=== PATIENT | female | born 1995 | race Caucasian/White ===

== ENCOUNTER 2016-07-25 11:58 | Emergency (ER) | payer BC ==
[2016-07-25 12:47] VITALS: BP 120/84
[2016-07-25] MEDS ORDERED: Albuterol 2.5 MG/3 ML NEB.SOL* (0.083%) INH ONE (12:58)
--- NOTE | 2016-07-25 13:04 | UC ---
Respiratory Complaint HPI - HPI Summary HPI Summary: ST, nasal congestion, cough, wheezing, and trouble breathing starting 3-4 days ago. "I'm in the middle of being tested for asthma for months." Ran out of albuterol yesterday, is waking at night with lots of wheezing and tightness. Denies fever. - History of Current Complaint Chief Complaint: UCRespiratory Stated Complaint: DIARRHEA CONGESTION Time Seen by Provider: 07/25/16 12:43 Hx Obtained From: Patient Hx Last Menstrual Period: 07/22/16 ?: No Onset/Duration: Gradual Onset, Lasting Days Timing: Constant Severity Initially: Mild Character: Cough: Nonproductive Aggravating Factors: Deep Breaths, Recumbent Position Alleviating Factors: Upright Position Associated Signs And Symptoms: Positive: Wheezing, URI, Nasal Congestion - Allergies/Home Medications Allergies/Adverse Reactions: Allergies Allergy/AdvReac Type Severity Reaction Status Date / Time No Known Allergies Allergy Verified 07/25/16 12:47 PMH/Surg Hx/FS Hx/Imm Hx Endocrine History Of: Denies: Diabetes, Thyroid Disease Cardiovascular History Of: Denies: Cardiac Disorders, Hypertension Respiratory History Of: Denies: COPD, Asthma GI/ History Of: Denies: Ulcer - Surgical History Surgical History: None - Family History Known Family History: Positive: Hypertension - mother, Respiratory Disease - mother with asthma Negative: Cardiac Disease, Diabetes - Social History Lives: Alone Alcohol Use: Weekly Substance Use Type: Marijuana Smoking Status (MU): Light Every Day Tobacco Smoker Type: Cigarettes Amount Used/How Often: 2 cigs a day Have You Smoked in the Last Year: Yes Review of Systems Constitutional: Negative Skin: Negative Eyes: Negative ENT: Sore Throat, Nasal Discharge Respiratory: Cough Cardiovascular: Negative Gastrointestinal: Negative Genitourinary: Negative Motor: Negative Neurovascular: Negative Musculoskeletal: Negative Neurological: Negative Psychological: Negative All Other Systems Reviewed And Are Negative: Yes Physical Exam Triage Information Reviewed: Yes Appearance: Well-Appearing, No Pain Distress, Well-Nourished Vital Signs: Initial Vital Signs Temp 98.3 F 07/25/16 12:42 Pulse 78 07/25/16 12:42 Resp 16 07/25/16 12:42 BP 120/84 07/25/16 12:42 Pulse Ox 94 07/25/16 12:42 Vital Signs Reviewed: Yes Eye Exam: Normal Eyes: Positive: Conjunctiva Clear ENT: Positive: Hearing grossly normal, Pharynx normal, Nasal congestion, TMs normal. Negative: Tonsillar swelling Dental Exam: Normal Neck exam: Normal Neck: Positive: Supple, Nontender Respiratory: Positive: No respiratory distress, Wheezing, Expiration Cardiovascular Exam: Normal Cardiovascular: Positive: RRR, No Murmur Musculoskeletal Exam: Normal Neurological Exam: Normal Psychological Exam: Normal Skin Exam: Normal UC Diagnostic Evaluation - Laboratory O2 Sat by Pulse Oximetry: 94 Re-Evaluation - Re-Evaluation First Eval Re-Evaluation Time: 13:14 Change: Improved - wheezing decreased, pt reports feeling better Respiratory Course/Dx - Differential Dx/Diagnosis Provider Diagnoses: URI. bronchospasm Discharge - Discharge Plan Condition: Stable Disposition: HOME Patient Education Materials: Upper Respiratory Infection (ED), Bronchospasm (ED ) Referrals: Amparo Coffey [employer] [Primary Care Provider] - If Needed Additional Instructions: We used to think antibiotics were necessary to treat bronchitis, but studies have shown that respiratory viruses cause the disease in the vast majority of cases. Like head colds, most cases of bronchitis get better without antibiotics. We may prescribe antibiotics if we believe bacteria are damaging your airways, or if there's high risk the bronchitis will worsen into pneumonia (such as for individuals with emphysema or other lung disease). Increase your fluid intake. A cool mist humidifier may make your lungs more comfortable. An expectorant (cough medicine that loosens phlegm) can help. If you smoke, STOP!!! Recovery from bronchitis can be somewhat slow, but you should not have any significant worsening or new fevers. As long as you can breathe easily and you continue to have steady improvement, it is not important how many days it takes you to get better. Call or return if you develop increasing fever, shortness of breath, chest pain , bloody sputum, or otherwise worsen. If you have not improved at all after several days, contact your primary care physician or return here.
== END 2016-07-25 13:24 | disposition home or self-care (01) ==
LOC: UCEAST 11:58
DX: J06.9 Acute upper respiratory infection, unspecified (principal); J98.01 Acute bronchospasm; F17.210 Nicotine dependence, cigarettes, uncomplicated
CPT/HCPCS: 99212; G0463

== ENCOUNTER 2016-08-30 19:28 | Emergency (ER) | payer BC ==
[2016-08-30 19:45] VITALS: BP 122/78
[2016-08-30] MEDS ORDERED: Albuterol 2.5 MG/3 ML NEB.SOL* (0.083%) INH ONE (19:54)
[2016-08-30] MEDS ORDERED: Phenylephrine 0.5% NASAL* BTL BOTH NARES ONE (19:55)
[2016-08-30] MEDS ORDERED: Acetaminophen TAB* 325 MG PO ONE (19:58)
[2016-08-30] MEDS ORDERED: Oseltamivir CAP* 75 MG PO ONE (20:26)
--- NOTE | 2016-08-30 21:13 | UC ---
Yamila Vega Michael, scribed for Mayra Stallings MD on 08/30/16 at 2001 . FLU HPI - HPI Summary HPI Summary: 21 y/o female comes to [facility] presenting with diarrhea for the last day. The pt reports that she has 2 episodes per hour. The pt also c/o nonproductive cough, sinus discomfort, nasal congestion for 2 days, and wheezing. She notes CP with the cough, and it is aggravated with deep breaths. The CP due to the cough is described as a 7 out of 10 in a pain assessment scale. She denies a sore throat, abd pain, vomiting, and blood in the stool. - History of Current Complaint Chief Complaint: UCRespiratory Stated Complaint: COLD,DIARRHEA Time Seen by Provider: 08/30/16 19:45 Hx Obtained From: Patient, Medical Records Hx Last Menstrual Period: current Onset/Duration: Sudden Onset, Lasting Days, Still Present Severity Currently: Moderate Severity Initially: Moderate Pain Intensity: 7 Pain Scale Used: 0-10 Numeric Associated Signs & Symptoms: Positive: Negative - blood in stool and abd pain, Cough - CP with cough. wheezing., Nasal Congestion - sinus discomfort, Diarrhea. Negative: Sore Throat, Vomiting - Allergy/Home Medications Allergies/Adverse Reactions: Allergies Allergy/AdvReac Type Severity Reaction Status Date / Time No Known Allergies Allergy Verified 08/30/16 19:38 Home Medications: Home Medications [id number] [Theraflu Cold & Cough 10-20-20 mg] 1 silverio PO DAILY PRN 08/30/16 [History Confirmed 08/30/16] PMH/Surg Hx/FS Hx/Imm Hx Endocrine History Of: Denies: Diabetes, Thyroid Disease Cardiovascular History Of: Denies: Cardiac Disorders, Hypertension Respiratory History Of: Reports: Asthma Denies: COPD GI/ History Of: Denies: Ulcer - Surgical History Surgical History: None - Family History Known Family History: Positive: Hypertension - mother, Respiratory Disease - mother with asthma Negative: Cardiac Disease, Diabetes - Social History Occupation: Employed Full-time Lives: Alone Alcohol Use: Weekly Substance Use Type: Marijuana Substance Use Comment - Amount & Last Used: daily Smoking Status (MU): Light Every Day Tobacco Smoker Type: Cigarettes Amount Used/How Often: 2 cigs a day Have You Smoked in the Last Year: Yes - Immunization History Most Recent Influenza Vaccination: none Review of Systems Constitutional: Chills, Fatigue ENT: Nasal Discharge, Other - sinus discomfort Respiratory: Cough, Other - wheezes Cardiovascular: Chest Pain - with cough Musculoskeletal: Myalgia Neurological: Headache Psychological: Negative All Other Systems Reviewed And Are Negative: Yes Physical Exam Triage Information Reviewed: Yes Appearance: No Pain Distress, Well-Nourished, Ill-Appearing Vital Signs: Initial Vital Signs Temp 99.3 F 08/30/16 19:40 Pulse 110 08/30/16 19:40 Resp 16 08/30/16 19:40 BP 122/78 08/30/16 19:40 Pulse Ox 97 08/30/16 19:40 tachycardia noted Vital Signs Reviewed: Yes Eyes: Positive: Conjunctiva Clear ENT: Positive: Hearing grossly normal, Pharynx normal, Nasal congestion - red nares-has to blow her nose frequently, TMs normal. Negative: Tonsillar swelling , Tonsillar exudate, Muffled/hoarse voice Neck: Positive: Supple, Nontender, No Lymphadenopathy Respiratory: Positive: Lungs clear, No respiratory distress, Decreased breath sounds Cardiovascular: Positive: No Murmur, Pulses Normal, Brisk Capillary Refill, Tachycardia Abdomen Description: Positive: Nontender, No Organomegaly, Soft. Negative: Distended, Guarding, McBurney's Point Tenderness, Peritoneal Signs Bowel Sounds: Positive: Present Musculoskeletal: Positive: Strength Intact, ROM Intact Neurological Exam: Normal Psychological Exam: Normal Skin Exam: Normal Re-Evaluation - Re-Evaluation 1st Re-Evaluation Time: 20:27 Change: Unchanged Comment: discussed influenza results and plan of care. Flu Course/Dx - Course Course Of Treatment: influenza B positive. albuterol neb given with improvement. shelley synephrine nasal spray. Pt only provided a small amount of stool. Will check for Cdiff as this is the only test that can be run on such a small amount. Pt will return if diarrhea continues. - Differential Dx/Diagnosis Differential Diagnosis/HQI/PQRI: Bronchitis, Influenza, Pneumonia, Upper Respiratory Infection Provider Diagnoses: Influenza B. diarrhea Discharge - Discharge Plan Condition: Stable Disposition: HOME Prescriptions: Albuterol 2.5MG/3ML (0.083%)* [Ventolin 2.5 MG/3 ML NEB.NEGRO*] 2.5 mg INH Q4H PRN #50 neb.negro PRN Reason: Cough Azelastine 0.15% NASAL(NF) [Astepro 0.15% NASAL (NF)] 2 spray NASAL BID #1 spray Oseltamivir CAP* [Tamiflu CAP*] 75 mg PO BID #10 cap Patient Education Materials: Influenza (ED) Forms: *Work Release Referrals: Amparo Coffey NP [Primary Care Provider] - Additional Instructions: Please follow up with Amparo Coffey (CLAMPER) within the next 2 days. The documentation as recorded by the Yamila byers Michael accurately reflects the service I personally performed and the decisions made by Chandrakant shafer Barbara J, MD.
== END 2016-08-30 20:50 | disposition home or self-care (01) ==
LOC: UCEAST 19:28
DX: J11.1 Influenza due to unidentified influenza virus with other respiratory manifestations (principal); F12.90 Cannabis use, unspecified, uncomplicated; F17.210 Nicotine dependence, cigarettes, uncomplicated; R19.7 Diarrhea, unspecified
CPT/HCPCS: 87493; 87502; 99213; A9270-GY; G0463

== ENCOUNTER 2017-10-25 12:03 | Emergency (ER) | payer BC ==
[2017-10-25 12:11] VITALS: BP 115/78
--- NOTE | 2017-10-25 13:26 | UC ---
Zev Vega Gabriel, scribed for Tenet St. LouisLeo MD on 10/25/17 at 1247 . Respiratory Complaint HPI - HPI Summary HPI Summary: This patient is a 22 year old F presenting to [facility] [place] with a chief complaint of a cough for that past 2 days. The patient rates the pain 0/10 in severity. Patient reports sinus congestion, chest congestion, low grade subjective fever, diarrhea, and head congestion. Patient denies CP and sore throat. note: vital signs stable, afebrile, pulse ox 98, light smoker, visit history : cough in 2016 and 2017. Uses albuterol and hx of asthma. Nurse note: Congested head and lungs x 2 days - History of Current Complaint Chief Complaint: UCRespiratory Stated Complaint: CONGESTED Time Seen by Provider: 10/25/17 12:40 Hx Obtained From: Patient Hx Last Menstrual Period: 09/23/17 Onset/Duration: Lasting Days - 2, Still Present Timing: Constant Severity Initially: Mild Severity Currently: Mild Pain Intensity: 0 Pain Scale Used: 0-10 Numeric Character: Cough: Nonproductive Associated Signs And Symptoms: Positive: Fever - low grade, Nasal Congestion - Allergies/Home Medications Allergies/Adverse Reactions: Allergies Allergy/AdvReac Type Severity Reaction Status Date / Time mold Allergy sinus Uncoded 10/25/17 12:12 Home Medications: Home Medications Jublia 10/25/17 [History] PMH/Surg Hx/FS Hx/Imm Hx Respiratory History: Asthma - Surgical History Surgical History: None - Family History Known Family History: Positive: Cardiac Disease, Hypertension - mother, Respiratory Disease - mother with asthma, Other - cancer Negative: Diabetes - Social History 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 Alcohol Use: Weekly Substance Use Type: Marijuana Substance Use Comment - Amount & Last Used: daily Smoking Status (MU): Light Every Day Tobacco Smoker Type: Cigarettes Amount Used/How Often: 2 cigs a day Have You Smoked in the Last Year: Yes - Immunization History Most Recent Influenza Vaccination: none Review of Systems Constitutional: Fever - low grade subjective ENT: Sinus Congestion Respiratory: Cough Cardiovascular: Other - chest congestion and head congestion Gastrointestinal: Diarrhea All Other Systems Reviewed And Are Negative: Yes - Comments Additional Review of Systems Comments: Positive: cough, sinus congestion, chest congestion, low grade subjective fever , diarrhea, and head congestion. Negative: CP and sore throat. Physical Exam - Summary Physical Exam Summary: Appearance: The patient is well-appearing, is in no pain distress, and is well- nourished. Eyes: Conjunctiva are clear. ENT: The hearing is grossly normal, the pharynx is normal, and the TMs are normal. There is no muffled or hoarse voice. Neck: The neck is supple and there is no lymphadenopathy. Respiratory: The chest is nontender. The lungs are clear and there is no respiratory distress. EXTENDED EXPIRATORY PHASE BILATERALLY Cardiovascular: Heart is regular rate and rhythm. There is no murmur. Abdomen: The abdomen is soft and nontender. There is no organomegaly. Bowel sounds: present Musculoskeletal: Strength is intact. The patient moves all extremities. Neurological: The patient is alert. Psychological: The patient displays age appropriate behavior Skin: Negative for rashes. Triage Information Reviewed: Yes Vital Signs: Initial Vital Signs Temp 98.6 F 10/25/17 12:09 Pulse 80 10/25/17 12:09 Resp 18 10/25/17 12:09 BP 115/78 10/25/17 12:09 Pulse Ox 98 10/25/17 12:09 Vital Signs Reviewed: Yes Diagnostic Evaluation - Laboratory O2 Sat by Pulse Oximetry: 98 Respiratory Course/Dx - Course Course Of Treatment: 22 y/o female, light smoker with 2 day history of cough. Previous history suggests bronchospasm. PE consistent with extended expiratory phase. Medications have been included in the original chart and reviewed - Differential Dx/Diagnosis Differential Diagnosis/HQI/PQRI: Other - PNA vs bronchitis Provider Diagnoses: bronchitis with bronchospasm Discharge - Sign-Out/Discharge Documenting (check all that apply): Discharge/Admit/Transfer - Discharge Plan Condition: Stable Disposition: HOME Prescriptions: Albuterol HFA INHALER* [Ventolin HFA Inhaler*] 1 - 2 puff INH Q4H PRN #1 mdi PRN Reason: Shortness Of Breath Inhaler, Assist Devices [Aerochamber Mv] 1 mis XX Q6HR #1 mis Patient Education Materials: Acute Bronchitis (ED), Bronchospasm (ED) Referrals: Amparo Coffey NP [Primary Care Provider] - Additional Instructions: WE DISCUSSED: You don't have pneumonia. You do have bronchitis with bronchospasm. This means that her lungs are hyperreactive to irritants and when they are irritated, you cough. Use the inhaler and spacer, 2 puffs up to 4 times a day spaced out a few hours apart. Over the next 10 days here condition should be getting better. Return here or go to the emergency department if you have increased temperature , chest pain, shortness of breath or difficulty breathing or swallowing. Warm liquids such as harika and honey also help calm down the chest. Also steam and standing in the shower and letting it down land on the front of your chest can help. - Billing Disposition and Condition Condition: STABLE Disposition: Home The documentation as recorded by the Zev byers Gabriel accurately reflects the service I personally performed and the decisions made by me, Leo Coles MD.
== END 2017-10-25 13:05 | disposition home or self-care (01) ==
LOC: UCEAST 12:03
DX: J40 Bronchitis, not specified as acute or chronic (principal); J98.01 Acute bronchospasm; F17.210 Nicotine dependence, cigarettes, uncomplicated
CPT/HCPCS: 99212; G0463

== ENCOUNTER 2018-05-10 09:22 | Emergency (ER) | payer BC ==
--- NOTE | 2018-05-10 10:34 | UC ---
Respiratory Complaint HPI - HPI Summary HPI Summary: 23 y/o female presets to the urgent care c/o productive cough w/ green phlegm since Wednesday05/07/2018. Pt states symptoms started w/ common cold and then she developed wheezing. Now she feels SOB and cough is worse at night unable to sleep well. Pt has low grade fever and chills the first day. 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 Pt states body aches and mild GUERIN is 2/10. Pt denies dizziness, Abdominal pain, neck pain rash, N/V/d. LMP:04/12/2018 on OCP. PT declines test. - History of Current Complaint Chief Complaint: UCRespiratory Stated Complaint: RESP ISSUE Time Seen by Provider: 05/10/18 10:09 Hx Obtained From: Patient Hx Last Menstrual Period: 09/23/17 Onset/Duration: Gradual Onset, Lasting Days, Still Present, Worse Since - yesterday Timing: Intermittent Episodes Severity Initially: Mild Severity Currently: Moderate Pain Intensity: 2 - body aches Pain Scale Used: 0-10 Numeric Character: Cough: Productive, Sputum Description: - green Aggravating Factors: Recumbent Position Alleviating Factors: Bronchodilator, OTC Meds Associated Signs And Symptoms: Positive: Chills, Wheezing, URI, Nasal Congestion , Sinus Discomfort - Risk Factors Pulmonary Embolism Risk Factors: Negative Cardiac Risk Factors: Negative Pseudomonas Risk Factors: Negative Tuberculosis Risk Factors: Negative - Allergies/Home Medications Allergies/Adverse Reactions: Allergies Allergy/AdvReac Type Severity Reaction Status Date / Time mold Allergy sinus Uncoded 05/10/18 09:58 Home Medications: Home Medications Desogestrel-Ethinyl Estradiol [Novdano 28 Day Tablet] 1 tab PO 05/10/18 [History ] PMH/Surg Hx/FS Hx/Imm Hx Previously Healthy: Yes Respiratory History: Asthma - Surgical History Surgical History: None - Family History Known Family History: Positive: Cardiac Disease, Hypertension - mother, Respiratory Disease - mother with asthma, Other - cancer Negative: Diabetes - Social History Occupation: Employed Full-time Lives: With Family Alcohol Use: Weekly Substance Use Type: Marijuana Substance Use Comment - Amount & Last Used: daily Smoking Status (MU): Light Every Day Tobacco Smoker Type: Cigarettes Amount Used/How Often: 2 cigs a day Have You Smoked in the Last Year: Yes - Immunization History Most Recent Influenza Vaccination: none Review of Systems All Other Systems Reviewed And Are Negative: Yes Constitutional: Positive: Chills, Other - body aches Skin: Positive: Negative Eyes: Positive: Negative ENT: Positive: Sore Throat - mild, Nasal Discharge - yellowish, Sinus Congestion , Sinus Pain/Tenderness Respiratory: Positive: Shortness Of Breath - at times, Cough - green phlegm Cardiovascular: Positive: Negative Gastrointestinal: Positive: Negative Genitourinary: Positive: Negative Motor: Positive: Negative Neurovascular: Positive: Negative Musculoskeletal: Positive: Negative Neurological: Positive: Negative Psychological: Positive: Negative Is Patient Immunocompromised?: No Physical Exam - Summary Physical Exam Summary: Vital Signs Reviewed: Yes General: well developed, well nourished female sitting in the examining table w/ o any apparent distress Eyes: Positive: Conjunctiva Clear - PERRLA, EOMI, fundi grossly normal ENT: Positive: Normal ENT inspection, Hearing grossly normal, Pharynx normal, Nasal congestion - edematous and erythematous nasal mucosa, Nasal drainage - yellowish drainage, TMs normal. Negative: Tonsillar swelling, Tonsillar exudate Neck: Positive: Supple, Nontender, No Lymphadenopathy Respiratory: no orthopnea or dyspnea. Able to speak in full sentences, no retractions or accessory muscle use, no tripod position, stridor, or head bobbing. Positive breath sounds bilaterally. diffuse scattered wheezing and rhonchi on b/L lungs, no crackles or rales. Cardiovascular: Positive: RRR, No Murmur, Pulses Normal, Brisk Capillary Refill Abdomen Description: Positive: Nontender, No Organomegaly, Soft. Negative: CVA Tenderness (R), CVA Tenderness (L) Bowel Sounds: Positive: Present Musculoskeletal Exam: Normal Musculoskeletal: Positive: Strength Intact, ROM Intact, No Edema Neurological Exam: Normal Psychological Exam: Normal Skin Exam: Normal Triage Information Reviewed: Yes Vital Signs: Initial Vital Signs Temp 98.0 F 05/10/18 09:55 Pulse 80 05/10/18 09:55 Resp 18 05/10/18 09:55 BP 117/78 05/10/18 09:55 Pulse Ox 97 05/10/18 09:55 Diagnostic Evaluation - Laboratory O2 Sat by Pulse Oximetry: 97 Respiratory Course/Dx - Course Course Of Treatment: 23 y/o female presets to the urgent care c/o productive cough w/ green phlegm since Wednesday05/07/2018. Pt states symptoms started w/ common cold and then she developed wheezing. Now she feels SOB and cough is worse at night unable to sleep well. Pt has low grade fever and chills the first day. 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 Pt states body aches and mild GUERIN is 2/10. Pt denies dizziness, Abdominal pain, neck pain rash, N/V/d. LMP:04/12/2018 on OCP. PT declines test. Hx obtained. Pt w/ scattered wheezes on bilaterally lungs, and mild rhonchi, good air entry B/L on examination. O2Sat: 97. Chest X-ray ordered to r/o pneumonia, Impression:no acute cardiopulmonary disease. Pt w/ asthma exacerbation due to bronchitis. Pt given Prednisone PO and Duoneb Treatment to alleviate symptoms. Pt tolerated well treatment and lungs improved,and wheezing resolved. Patient prescribed Z-marco PO, Prednisone taper dose, Albuterol neb and inhaler to alleviate symptoms as directed below. The patient was recommended to increase fluid intake. Take medications as recommended. Pt advised to returned to the clinic or f/u w/ her PCP if symptoms do not improve. All D/C instructions explained. Patient understood and agree w / plan of care. Pt left clinic hemodynamically stable , A&OX3 - Differential Dx/Diagnosis Differential Diagnosis/HQI/PQRI: Asthma, Bronchitis, Influenza, Lower Resp Infection, Sinusitis, Other - pneumonia Provider Diagnosis: Asthma exacerbation Discharge - Sign-Out/Discharge Documenting (check all that apply): Patient Departure - d/c home All imaging exams completed and their final reports reviewed: Yes - Discharge Plan Condition: Stable Disposition: HOME Prescriptions: Albuterol 2.5MG/3ML (0.083%)* [Ventolin 2.5 MG/3 ML NEB.NEGRO*] 2.5 mg INH Q6H #1 box Albuterol HFA INHALER* [Ventolin HFA Inhaler*] 1 - 2 puff INH Q4H PRN #1 mdi PRN Reason: Shortness Of Breath Azithromyxin MARCO (NF) [Z-Marco (Zithromax) 250 mg tabs #6] 2 tab PO .TODAY, THEN 1 DAILY #6 tab predniSONE TAB* [Deltasone 20 MG TAB*] 20 mg PO DAILY #8 tab Patient Education Materials: Asthma (ED), Acute Bronchitis (ED) Forms: *Work Release Referrals: Amparo Coffey NP [Primary Care Provider] - 2 Days Additional Instructions: 1- Take Prednisone PO taper dose as directed starting tomorrow. First loading dose given today. 2- 3-Use the Duoneb nebulizer treatment to alleviate SOB, and wheezing as directed . Increase fluid intake, rest and eat well. 4- If symptoms do not improve or worsen or your develop SOB with fever and severe wheezing please go immediately to the ER further evaluation and treatment. 5- F/u with your PCP in 2-3 days for further management on your Asthma - Billing Disposition and Condition Condition: STABLE Disposition: Home
[2018-05-10] MEDS ORDERED: predniSONE TAB* 20 MG PO ONE (10:43)
[2018-05-10] MEDS ORDERED: Albuterol/Ipratropium NEB.SOL* Albuterol 2.5 MG/Ipratropium 0.5 MG 3 ML INH ONE (10:43)
[2018-05-10 11:49] VITALS: BP 125/81
== END 2018-05-10 11:50 | disposition home or self-care (01) ==
LOC: UCEAST 09:22
DX: J45.901 Unspecified asthma with (acute) exacerbation (principal); F17.210 Nicotine dependence, cigarettes, uncomplicated; Z91.048 Other nonmedicinal substance allergy status
CPT/HCPCS: 71046; 99212; A9270-GY; G0463; J7512

== ENCOUNTER 2018-12-19 20:05 | Emergency (ER) | payer BC ==
--- NOTE | 2018-12-19 20:17 | UC ---
Respiratory Complaint HPI - HPI Summary HPI Summary: 23 yo female presents with cough. She tells me that she began to get sick 2 weeks ago with a dry cough that has continued into today. She quit smoking about 2 weeks ago because she would constantly get "sick" with URI symptoms. Has not smoked in 2 weeks. She does feel SOB at times. She has an albuterol nebulizer at home that she has been using with good short term relief, but her symptoms return. She has been taking mucinex, delsym, and dayquill/nyquill with no change in her symptoms. Denies fever, chills, sore throat, chest pain, n/v. - History of Current Complaint Stated Complaint: COUGH Time Seen by Provider: 12/19/18 20:16 Hx Obtained From: Patient Hx Last Menstrual Period: 04/07/19 Onset/Duration: Gradual Onset Severity Initially: Mild Severity Currently: Moderate Pain Intensity: 5 Pain Scale Used: 0-10 Numeric Character: Cough: Nonproductive - Allergies/Home Medications Allergies/Adverse Reactions: Allergies Allergy/AdvReac Type Severity Reaction Status Date / Time mold Allergy sinus Uncoded 12/19/18 20:21 Home Medications: Home Medications Albuterol 2.5MG/3ML (0.083%)* [Ventolin 2.5 MG/3 ML NEB.NEGRO*] 1 unit INH BID PRN 12/19/18 [History Confirmed 12/19/18] Albuterol HFA INHALER* [Ventolin HFA Inhaler*] 2 puff INH Q4HR PRN 12/19/18 [ History Confirmed 12/19/18] Cetirizine HCl [Allergy Relief] 1 tab PO ONCE PRN 12/19/18 [History Confirmed ] Guaifen/Dextromethorphan/PE [Robitussin Cough-Cold Cf Liq] 1 dose PO ONCE PRN [History Confirmed 12/19/18] Levocetirizine Dihydrochloride [Xyzal] 1 tab PO QPM 12/19/18 [History Confirmed 12/19/18] PMH/Surg Hx/FS Hx/Imm Hx Respiratory History: Asthma - Surgical History Surgical History: None - Family History Known Family History: Positive: Cardiac Disease, Hypertension - mother, Respiratory Disease - mother with asthma, Other - cancer Negative: Diabetes - Social History Lives: With Family Alcohol Use: Weekly Substance Use Type: Marijuana Substance Use Comment - Amount & Last Used: daily Smoking Status (MU): Light Every Day Tobacco Smoker Type: Cigarettes Amount Used/How Often: 2 cigs a day Have You Smoked in the Last Year: Yes - Immunization History Most Recent Influenza Vaccination: none Review of Systems All Other Systems Reviewed And Are Negative: Yes Constitutional: Positive: Negative Skin: Positive: Negative Eyes: Positive: Negative ENT: Positive: Negative Respiratory: Positive: Cough Cardiovascular: Positive: Negative Gastrointestinal: Positive: Negative Neurovascular: Positive: Negative Neurological: Positive: Negative Psychological: Positive: Negative Physical Exam - Summary Physical Exam Summary: GENERAL: NAD. WDWN. No pain distress. SKIN: No rashes, sores, lesions, or open wounds. HEENT: Head: AT/NC Eyes: Conjunctiva clear without inflammation or discharge. Ears: Hearing grossly normal. TMs intact, no bulging, erythema, or edema. Nose: Nasal mucosa pink and moist. NTTP maxillary and frontal sinus. Throat: Posterior oropharynx without exudates, erythema, or tonsillar enlargement. Uvula midline. NECK: Supple. Nontender. No lymphadenopathy. CHEST: Mild wheezing and crackles bibasilar. No accessory muscle use. Breathing comfortably and in no distress. CV: RRR. Without m/r/g. Pulses intact. Cap refill <2seconds NEURO: Alert. PSYCH: Age appropriate behavior. Triage Information Reviewed: Yes Vital Signs: Vital Signs: Temp Pulse Resp BP Pulse Ox 98.3 F 91 18 121/92 96 12/19/18 20:15 12/19/18 20:15 12/19/18 20:15 12/19/18 20:15 12/19/18 20:15 Vital Signs Reviewed: Yes Respiratory Course/Dx - Course Course Of Treatment: CXR: wet read negative for PNA. Duoneb: good improvement s/p with less wheezing and easier to take a deep breath Suspect bronchitis. Rx for zpak, albuterol inhaler, and cough syrup at bedtime. Will also refill her albuterol nebulizer solutions. - Differential Dx/Diagnosis Provider Diagnosis: Bronchitis Discharge - Sign-Out/Discharge Documenting (check all that apply): Patient Departure All imaging exams completed and their final reports reviewed: No - Discharge Plan Condition: Stable Disposition: HOME Prescriptions: Albuterol 2.5MG/3ML (0.083%)* [Ventolin 2.5 MG/3 ML NEB.NEGRO*] 2.5 mg INH Q6H PRN #30 neb.negro PRN Reason: Wheezing Azithromycin TAB* [Zithromax TAB (Z-MELLISSA) 250 mg #6 tabs] 2 tab PO .TODAY, THEN 1 DAILY #1 mellissa Codeine Phosphate/Guaifenesin [Guaifen-Codeine 100-10 mg/5 ml] 5 ml PO BEDTIME PRN #35 ml MDD 5mL PRN Reason: Cough Patient Education Materials: Acute Bronchitis (ED) Referrals: Amparo Coffey SPA THERAPIST [Primary Care Provider] - Additional Instructions: If you develop a fever, shortness of breath, chest pain, new or worsening symptoms - please call your PCP or go to the ED immediately. - Billing Disposition and Condition Condition: STABLE Disposition: Home - Attestation Statements Provider Attestation: I was available for consult. This patient was seen by the [facility]. The patient was not presented to, seen by, or examined by me. -Emmanuel
[2018-12-19 20:21] VITALS: BP 121/92
[2018-12-19] MEDS ORDERED: Albuterol/Ipratropium NEB.SOL* Albuterol 2.5 MG/Ipratropium 0.5 MG 3 ML INH ONE (20:31)
[2018-12-19] MEDS ORDERED: Azithromycin TAB* 250 MG PO ONE (20:40)
[2018-12-19] MEDS ORDERED: Albuterol HFA INHALER* 8 gm MDI INH ONE (20:40)
--- NOTE | 2018-12-20 08:19 | UC ---
- Progress Note Progress Note: Patient Name: JANINE CHAUDHARY Medical Record#: [id number] Ordering Physician: Pastor HERNANDEZ Acct.#: [id number] : 1995 Age: 23 Sex: F Location: [facility] Exam Date: 12/19/182026 ADM Status: DEP ER Order Information: CHEST PA & LAT 2 VWS Accession Number: [id number] CPT: 07988 INDICATION: Cough. COMPARISON: Comparison is made with prior study from May 10, 2018. TECHNIQUE: Dual-energy PA and lateral views of the chest were obtained. FINDINGS: The heart is within normal limits in size. Mediastinal and hilar contours appear within normal limits. There is a small infiltrates at the right lung base which appears to be in the right middle lobe suggestive of pneumonia. The lungs are otherwise clear. No pleural effusion is seen. The results of this exam were called to the urgent care nurse [place]. IMPRESSION: SMALL RIGHT MIDDLE LOBE INFILTRATE SUGGESTIVE OF PNEUMONIA. R3 Preliminary Imaging Read R3 <Electronically signed by Osman Weber MD in OV> 12/20/18719 Dictated By: Osman Weber MD Dictated Date/Time: 12/20/18719 Transcribed Date/Time: 12/20/18716 Copy to: CC:Divine Trevino MD; Amparo Coffey STONEMASON APPRENTICE; Pastor HERNANDEZ Imaging - [facility] - [place] [facility] [address] [address] ph ([phone]) ph ([phone]) ph ([phone]) This report is only to be considered final once signed by the Provider(s) as displayed in the "<Electronically Signed by >" field (s). Absence of a signature indicates the report is in a draft status and still needs to be finalized. In the event this document was created by someone other than the signing Provider, the individual initiating the document will be listed in the "Entered by:" or "Dictated by:" warner. 1 of 1 Patient diagnosed with bronchitis and placed on a Z-mellissa. Antibiotics appropriate but RN will call to update patient to diagnosis change Course/Dx - Diagnoses Provider Diagnoses: Bronchitis Discharge - Sign-Out/Discharge Documenting (check all that apply): Post-Discharge Follow Up All imaging exams completed and their final reports reviewed: Yes - Discharge Plan Condition: Stable Disposition: HOME Prescriptions: Albuterol 2.5MG/3ML (0.083%)* [Ventolin 2.5 MG/3 ML NEB.RONALDO*] 2.5 mg INH Q6H PRN #30 neb.ronaldo PRN Reason: Wheezing Azithromycin TAB* [Zithromax TAB (Z-MELLISSA) 250 mg #6 tabs] 2 tab PO .TODAY, THEN 1 DAILY #1 mellissa Codeine Phosphate/Guaifenesin [Guaifen-Codeine 100-10 mg/5 ml] 5 ml PO BEDTIME PRN #35 ml MDD 5mL PRN Reason: Cough Patient Education Materials: Acute Bronchitis (ED) Referrals: Amparo Coffey NP [Primary Care Provider] - Additional Instructions: If you develop a fever, shortness of breath, chest pain, new or worsening symptoms - please call your PCP or go to the ED immediately. - Billing Disposition and Condition Condition: STABLE Disposition: Home
== END 2018-12-19 21:10 | disposition home or self-care (01) ==
LOC: UCEAST 20:05
DX: J40 Bronchitis, not specified as acute or chronic (principal); F17.210 Nicotine dependence, cigarettes, uncomplicated
CPT/HCPCS: 71046; 99213; A9270-GY; G0463

== ENCOUNTER 2024-03-26 00:52 | Inpatient (IN) ==
[2024-03-26] MEDS: Lactated Ringers 1000 ml BAG 1,000 ML IV ONE (01:10)
[2024-03-26] MEDS ORDERED: Ondansetron 4 mg VIAL 2 MG/ML 2 ml VIAL IV PRN ×2 (01:17→14:12)
[2024-03-26] MEDS ORDERED: Lactated Ringers 1000 ml BAG 1,000 ML IV ONE (01:27)
[2024-03-26] MEDS ORDERED: Lidocaine 1% VIAL 10 MG/ML 30 ML VIAL INJ PRN (01:27)
[2024-03-26 01:31] LABS: ABS Basophils 0.1 10^3/uL (0.0-0.1); ABS Eosinophils 0.2 10^3/uL (0.0-0.5); ABS Lymphocytes 2.5 10^3/uL (1.0-4.8); ABS Monocytes 0.8 10^3/uL (0.0-0.9); ABS Neutrophils 6.9 10^3/uL (1.5-7.6); ABS Nucleated RBC 0.01 10^3/ul; Hematocrit 37.1 % (35-45); Hemoglobin 12.9 g/dL (11.5-14.3); Lymphocyte % 23.9 %; Mean Corpuscular Hgb Conc 34.7 g/dL (31-36); Mean Corpuscular Volume 95.2 fL (80-97); Mean Platelet Volume 9.7 fL (7.5-11.2); Nucleated Red Blood Cells % 0.1 %/100WBC (0.0-0.8); Platelet Count 169 10^3/uL (150-450); Red Cell Distribution Width 12.9 % (12-17); White Blood Count 10.4 10^3/uL (3.8-11.8)
[2024-03-26] MEDS: Famotidine IV 10 MG/ML 2 ml VIAL (20 mg) IV SLOW PU ONE (01:40)
[2024-03-26 01:43] LABS: Urine Creatinine Concentration 116.08 mg/dL (20.00-320.00); Urine TP Creat Ratio 0.23 mg/mg
[2024-03-26] MEDS: Ondansetron 4 mg VIAL 2 MG/ML 2 ml VIAL IV PRN (01:43)
[2024-03-26 01:50] LABS: Albumin 3.4 g/dL (3.2-5.2); Albumin/Globulin Ratio 1.4 (1-3); Calcium 9.1 mg/dL (8.6-10.3); Creatinine, Serum 0.87 mg/dL (0.51-0.95); Globulin 2.4 g/dL (2-4); Potassium 4.4 mmol/L (3.5-5.0); Total Bilirubin 0.4 mg/dL (0.2-1.0); Total Protein 5.8 g/dL (6.4-8.9); eGFR CKD-EPI 91.3 (>60)
[2024-03-26 02:24] LABS: Urine Benzodiazepine Screen None Detected (None Detect); Urine Cannabinoids Screen None Detected (None Detect); Urine Opiates Screen None Detected (None Detect)
[2024-03-26] MEDS: miSOPROStol 100 mcg TAB PO ONE ×3 (02:50→10:47)
[2024-03-26] MEDS: Nalbuphine 10 MG/ML 1 ML VIAL IV PRN (06:28)
[2024-03-26 08:26] LABS: Hematocrit 36.7 % (35-45); Hemoglobin 12.5 g/dL (11.5-14.3); Mean Corpuscular Hemoglobin 32.9 pg (27-33); Mean Corpuscular Hgb Conc 34.2 g/dL (31-36); Mean Corpuscular Volume 96.4 fL (80-97); Mean Platelet Volume 10.2 fL (7.5-11.2); Platelet Count 118 10^3/uL (150-450); Red Blood Count 3.81 10^6/uL (3.63-4.92); Red Cell Distribution Width 13.3 % (12-17); White Blood Count 14.9 10^3/uL (3.8-11.8)
[2024-03-26 09:08] LABS: Albumin 3.1 g/dL (3.2-5.2); Albumin/Globulin Ratio 1.3 (1-3); Calcium 8.3 mg/dL (8.6-10.3); Creatinine, Serum 0.86 mg/dL (0.51-0.95); Globulin 2.3 g/dL (2-4); Potassium 4.2 mmol/L (3.5-5.0); Total Bilirubin 0.5 mg/dL (0.2-1.0); Total Protein 5.4 g/dL (6.4-8.9); eGFR CKD-EPI 92.6 (>60)
[2024-03-26 11:25] LABS: ABS Eosinophils 0.1 10^3/uL (0.0-0.5); ABS Lymphocytes 2.2 10^3/uL (1.0-4.8); ABS Monocytes 0.7 10^3/uL (0.0-0.9); ABS Neutrophils 8.5 10^3/uL (1.5-7.6); Eosinophil % 0.6 %; Hematocrit 37.8 % (35-45); Hemoglobin 12.9 g/dL (11.5-14.3); Lymphocyte % 18.8 %; Mean Corpuscular Hemoglobin 32.9 pg (27-33); Mean Corpuscular Hgb Conc 34.2 g/dL (31-36); Mean Corpuscular Volume 96.1 fL (80-97); Mean Platelet Volume 10.1 fL (7.5-11.2); Platelet Count 130 10^3/uL (150-450); Red Blood Count 3.93 10^6/uL (3.63-4.92); Red Cell Distribution Width 13.4 % (12-17); White Blood Count 11.4 10^3/uL (3.8-11.8)
[2024-03-26 12:03] LABS: Albumin 3.2 g/dL (3.2-5.2); Albumin/Globulin Ratio 1.4 (1-3); Calcium 8.4 mg/dL (8.6-10.3); Creatinine, Serum 0.99 mg/dL (0.51-0.95); Globulin 2.3 g/dL (2-4); Potassium 4.3 mmol/L (3.5-5.0); Total Bilirubin 0.5 mg/dL (0.2-1.0); Total Protein 5.5 g/dL (6.4-8.9); eGFR CKD-EPI 78.2 (>60)
[2024-03-26] MEDS ORDERED: Magnesium Sulf 4 GM/100 ML IV 4,000 MG/100 ML BAG IVPB ONE (12:32)
[2024-03-26] MEDS ORDERED: Magnesium Sulfate 2 gm BAG 2 GM/50 ML BAG IVPB ONE (12:34)
[2024-03-26] MEDS ORDERED: Calcium Gluconate 1 GM/10 ML VIAL (in Pyxis) IV PUSH PRN (12:35)
[2024-03-26] MEDS ORDERED: Ondansetron 4 mg VIAL 2 MG/ML 2 ml VIAL ONE (12:48)
[2024-03-26] MEDS ORDERED: Oxytocin 10 UNITS/ML 1 ML VIAL ONE (12:48)
[2024-03-26] MEDS ORDERED: Morphine PF AMP (0.5MG/ML) 5 MG/10 ML AMP ONE (12:48)
[2024-03-26] MEDS ORDERED: Phenylephrine IV 10 MG/ML 1 ml VIAL ONE (12:51)
[2024-03-26] MEDS: Magnesium Sulfate OB PREMIX 4 GM/100 ML BAG IV ONE (13:07)
[2024-03-26] MEDS: Lactated Ringers 1000 ml BAG 1,000 ML IV SCH (13:08)
[2024-03-26] MEDS: Sodium Citrate/Citric Acid LIQ 15 ML UDC PO ONE (13:30)
[2024-03-26] MEDS ORDERED: Naloxone 0.4 mg VIAL 0.4 mg/ml 1 ml VIAL IV PUSH PRN (14:12)
[2024-03-26] MEDS ORDERED: Metoclopramide 5 MG/ML VIAL (10 mg) IV PRN (14:12)
[2024-03-26] MEDS ORDERED: Glycerin ADULT 2.4 gm SUPP PR PRN (14:46)
[2024-03-26] MEDS ORDERED: Witch Hazel PAD JAR TOPICAL PRN (14:46)
[2024-03-26] MEDS ORDERED: Measles, Mumps,Rubella VACC 0.5 ML/VIAL SUBCUT ONE (14:46)
[2024-03-26] MEDS ORDERED: Polyethylene Glycol 3350 17 GM PACKET PO PRN (14:46)
[2024-03-26] MEDS ORDERED: Lactated Ringers 1000 ml BAG 1,000 ML IV SCH (15:00)
[2024-03-26] MEDS: Oxytocin in LR 20,000 MILLI.UNIT/1,000 ML BAG IV SCH (16:01)
[2024-03-26 16:25] LABS: Urine Appearance Clear; Urine Bilirubin Negative (Negative); Urine Blood 1+ (Negative); Urine Color Colorless; Urine Glucose Negative (Negative); Urine Ketones Negative (Negative); Urine Nitrite Negative (Negative); Urine Protein Trace (Negative); Urine Specific Gravity 1.005 (1.002-1.030); Urine Urobilinogen Negative (Negative); Urine pH 6.5 (5.0-8.0)
[2024-03-26] MEDS: Acetaminophen IV 1 GM/100ML 1,000 MG/100 ML BAG IV PRN (16:41)
[2024-03-26 16:48] LABS: Urine Bacteria Absent /HPF (Absent); Urine Red Blood Cell 1+(3-5/hpf) /HPF (0-Trace); Urine White Blood Cell Trace(0-5/hpf) /HPF (0-Trace)
[2024-03-26] MEDS: ceFOXitin 2 GM IVPREMIX 2 GM/50 ML BAG IVPB ONE (17:57)
[2024-03-26] MEDS: Magnesium Sulfate OB PREMIX 40 GM/1,000 ML BAG IVPB SCH (17:59)
[2024-03-27 07:53] LABS: ABS Eosinophils 0.2 10^3/uL (0.0-0.5); ABS Lymphocytes 1.9 10^3/uL (1.0-4.8); ABS Monocytes 0.4 10^3/uL (0.0-0.9); ABS Neutrophils 8.6 10^3/uL (1.5-7.6); Albumin 2.6 g/dL (3.2-5.2); Albumin/Globulin Ratio 1.4 (1-3); Calcium 6.3 mg/dL (8.6-10.3); Creatinine, Serum 0.99 mg/dL (0.51-0.95); Eosinophil % 1.9 %; Globulin 1.9 g/dL (2-4); Hematocrit 34.5 % (35-45); Hemoglobin 12.2 g/dL (11.5-14.3); Large Platelets Present; Mean Corpuscular Hemoglobin 33.7 pg (27-33); Mean Corpuscular Hgb Conc 35.3 g/dL (31-36); Mean Corpuscular Volume 95.5 fL (80-97); Mean Platelet Volume 9.4 fL (7.5-11.2); Platelet Count 99 10^3/uL (150-450); Potassium 3.9 mmol/L (3.5-5.0); Red Blood Count 3.61 10^6/uL (3.63-4.92); Red Cell Distribution Width 13.2 % (12-17); Total Bilirubin 0.4 mg/dL (0.2-1.0); Total Protein 4.5 g/dL (6.4-8.9); White Blood Count 11.2 10^3/uL (3.8-11.8); eGFR CKD-EPI 78.2 (>60)
[2024-03-27] MEDS: Buffered Lidocaine 1% SYRIN 1 ml INTRADERM ONE (19:39)
[2024-03-27] MEDS: Sodium Citrate/Citric Acid LIQ 15 ML UDC ONE (19:44)
[2024-03-28] MEDS: RHO D Immune Globulin (HUMAN) 300 MCG = 1,500 I.U. INJ IM PRN (16:13)
[2024-03-29 07:45] LABS: ABS Eosinophils 0.4 10^3/uL (0.0-0.5); ABS Lymphocytes 1.8 10^3/uL (1.0-4.8); ABS Monocytes 0.6 10^3/uL (0.0-0.9); ABS Neutrophils 8.3 10^3/uL (1.5-7.6); ABS Nucleated RBC 0.01 10^3/ul; Eosinophil % 3.8 %; Hematocrit 31.8 % (35-45); Hemoglobin 10.9 g/dL (11.5-14.3); Mean Corpuscular Hemoglobin 33.5 pg (27-33); Mean Corpuscular Hgb Conc 34.4 g/dL (31-36); Mean Corpuscular Volume 97.6 fL (80-97); Mean Platelet Volume 8.6 fL (7.5-11.2); Nucleated Red Blood Cells % 0.1 %/100WBC (0.0-0.8); Platelet Count 163 10^3/uL (150-450); Red Blood Count 3.26 10^6/uL (3.63-4.92); Red Cell Distribution Width 13.4 % (12-17); White Blood Count 11.2 10^3/uL (3.8-11.8)
[2024-03-29 07:56] VITALS: BP 142/90
[2024-03-29 11:13] LABS: Albumin 3.2 g/dL (3.2-5.2); Albumin/Globulin Ratio 1.4 (1-3); Calcium 8.2 mg/dL (8.6-10.3); Creatinine, Serum 0.83 mg/dL (0.51-0.95); Globulin 2.3 g/dL (2-4); Potassium 4.6 mmol/L (3.5-5.0); Total Bilirubin 0.4 mg/dL (0.2-1.0); Total Protein 5.5 g/dL (6.4-8.9); eGFR CKD-EPI 96.6 (>60)
[2024-03-29] MEDS: Measles, Mumps,Rubella VACC 0.5 ML/VIAL SUBCUT ONE (11:30)
== END 2024-03-29 13:55 | disposition home or self-care (01) | DRG 540 ==
LOC: MCHOBOUT 00:52 → MCHOB 01:12
PROVIDERS: ADMIT Advanced Practice Midwife; ATTEND Obstetrics & Gynecology